=== PATIENT | male | born 1965 | race Caucasian/White ===

== ENCOUNTER → 2022-02-12 | Outpatient (CLI) | payer MEDICARE ==
[~2022-02-12] MED LIST: NORCO 7.5-3251 EACH PO; ZOFRAN4 MG PO
== END ==
LOC: LAB 10:01
DX: Z20.822 Contact with and (suspected) exposure to COVID-19 (principal)
CPT/HCPCS: U0002

== ENCOUNTER 2022-02-27 19:11 | Inpatient (IN) | payer MEDICARE ==
[~2022-02-27] VITALS: Ht 182.9 cm; Wt 104.3 kg
[2022-02-27 19:39] LABS: HEMOGLOBIN 13.5 gm/dl (14.0-17.5); RED BLOOD COUNT 4.45 M/UL (4.20-5.50); WHITE BLOOD COUNT 5.4 K/UL (4.5-11.0)
[2022-02-27 20:02] LABS: BUN/CREATININE RATIO 15 (0-10)
[2022-02-28 05:55] LABS: HEMOGLOBIN 11.6 gm/dl (14.0-17.5); WHITE BLOOD COUNT 5.8 K/UL (4.5-11.0)
[2022-02-28 06:11] LABS: RED BLOOD COUNT 3.8 M/UL (4.20-5.50)
[2022-02-28 06:30] LABS: BUN/CREATININE RATIO 12 (0-10)
[2022-02-28] MEDS ORDERED: LAMOTRIGINE ER50 MG PO (09:46)
[2022-02-28] MEDS ORDERED: LAMICTAL25 MG PO (09:46)
[2022-02-28] MEDS ORDERED: NEURONTIN300 MG PO (09:47)
[2022-02-28] MEDS ORDERED: HYDROCODON-ACE1 EAC6 PO (09:47)
[2022-02-28] MEDS ORDERED: LUVOX TAB 100100 MG PO (09:47)
[2022-02-28] MEDS ORDERED: CLONAZEPAM1 MG PO (09:47)
[2022-02-28] MEDS ORDERED: HYDRALAZINE HCL50 MG PO (09:47)
[2022-02-28] MEDS ORDERED: COZAAR100 MG PO (09:48)
[2022-02-28] MEDS ORDERED: BENICAR40 MG PO (09:48)
[2022-02-28] MEDS ORDERED: SERTRALINE HCL100 MG PO (09:50)
[2022-02-28] MEDS ORDERED: SPIRONOLACTONE50 MG PO (09:50)
[2022-02-28] MEDS ORDERED: TRAZODONE HCL50 MG PO (09:51)
[2022-02-28] MEDS ORDERED: IBU800 MG PO (09:51)
[2022-02-28] MEDS ORDERED: NORVASC5 MG PO (12:23)
[2022-02-28] MEDS ORDERED: LAMICTAL XR25 MG PO (12:40)
[2022-02-28] MEDS ORDERED: POTASSIUM CHLO20 ME1 PO (14:17)
[2022-02-28] MEDS ORDERED: ISOSORBIDE MONO60 MG PO (14:17)
--- NOTE | 2022-02-28 15:59 | NUR ---
REPOR GIVEN TO SHELIA AT 1345. PT RESTING IN BED AND STABLE AT THIS TIME. DRESSINGS CLEAN, DRY AND INTACT. MONITORING.
[2022-02-28] MEDS ORDERED: NITROGLYCERIN0.4 MG SL (17:45)
[2022-02-28] MEDS ORDERED: ASPIRIN EC81 MG PO (17:45)
[2022-02-28] MEDS ORDERED: HYDRALAZINE HCL25 MG PO (18:08)
== END 2022-02-28 18:54 | disposition home or self-care (01) | DRG 282 ==
LOC: ER1 19:11 → CDU 22:19 → MED SURG 4 22:19
PROVIDERS: Emergency Medicine; Internal Medicine; ADMIT Internal Medicine
PROC: 4A023N7 Measurement of Cardiac Sampling and Pressure, Left Heart, Percutaneous Approach (ICD-10-PCS; principal; 2022-02-28)
PROC: B2111ZZ Fluoroscopy of Multiple Coronary Arteries using Low Osmolar Contrast (ICD-10-PCS; 2022-02-28)
PROC: B24BZZZ Ultrasonography of Heart with Aorta (ICD-10-PCS; 2022-02-28)
DX: I21.4 Non-ST elevation (NSTEMI) myocardial infarction (principal); I10 Essential (primary) hypertension; F41.9 Anxiety disorder, unspecified; I20.9 Angina pectoris, unspecified; E66.9 Obesity, unspecified; E87.6 Hypokalemia; Z90.49 Acquired absence of other specified parts of digestive tract; Z90.89 Acquired absence of other organs; Z98.890 Other specified postprocedural states; Z68.31 Body mass index [BMI] 31.0-31.9, adult; Z87.898 Personal history of other specified conditions; Z82.49 Family history of ischemic heart disease and other diseases of the circulatory system; Z79.899 Other long term (current) drug therapy; Z87.442 Personal history of urinary calculi; Z79.82 Long term (current) use of aspirin
CPT/HCPCS: ECHO; 36415; 71045; 80053; 80061; 82550; 82553; 83036; 83735; 84132; 84439; 84443; 84484; 85025; 86140; 93005; 93306; 99152; 99153; 99285; C1769; C1887; C1894; G0378; J0461; J1644; J2250; J3010; J7040; Q9967

== ENCOUNTER → 2022-04-17 | Outpatient (CLI) | payer MEDICARE ==
[~2022-04-17] MED LIST changes: +ASPIRIN EC81 MG PO; +BENICAR40 MG PO; +CLONAZEPAM1 MG PO; +COZAAR100 MG PO; +HYDRALAZINE HCL25 MG PO; +HYDRALAZINE HCL50 MG PO; +HYDROCODON-ACE1 EAC6 PO; +IBU800 MG PO; +ISOSORBIDE MONO60 MG PO; +LAMICTAL XR25 MG PO; +LAMICTAL25 MG PO; +LAMOTRIGINE ER50 MG PO; +LUVOX TAB 100100 MG PO; +NEURONTIN300 MG PO; +NITROGLYCERIN0.4 MG SL; +NORVASC5 MG PO; +POTASSIUM CHLO20 ME1 PO; +SERTRALINE HCL100 MG PO; +SPIRONOLACTONE50 MG PO; +TRAZODONE HCL50 MG PO
== END ==
LOC: LAB 08:24
DX: Z20.822 Contact with and (suspected) exposure to COVID-19 (principal)
CPT/HCPCS: U0002